=== PATIENT | female | born 1975 | race Caucasian/White ===

== ENCOUNTER 2019-05-27 11:06 | Outpatient (CLI) | payer OTHER, SELFPAY ==
--- NOTE | 2019-05-27 11:10 | MM_ITS ---
WS: [id number] BILATERAL DIGITAL DIAGNOSTIC MAMMOGRAM MAMMOGRAPHY WITH CAD CLINICAL INFORMATION: repeat mammo, new lump to left breast COMPARISON: May 27, 2018 TECHNIQUE: Bilateral CC, MLO, and ML views. FINDINGS: The breasts are composed of heterogeneous fibroglandular density, which can limit the detection of sm all underlying mass lesions. Palpable marker upper outer left breast with dense underlying breast tis timur. Partially obscured nodular density measuring 2.1 CM. Ultrasound is pending. Right breast is unch anged. ULTRASOUND BREAST LEFT TECHNIQUE: Ultrasound left breast focused area of concern. CLINICAL INFORMATION: repeat mammo, new lump to left breast COMPARISON: None. FINDINGS: Ultrasound left breast at 3:00 position 2 cm from the nipple. Cystic lesion measures 2.3 x 2.2 x 1.6 cm consistent with benign simple cyst. Similar-appearing cyst present in this location on the 2019 ul trasound. No pathologic lesions to target for biopsy. MM/[place] [id number] IMPRESSION: BI-RADS: 2-Benign FOLLOW UP: 1 Year Follow-up Recommend return to annual screening mammography.
== END 2019-05-27 11:07 | disposition home or self-care (01) ==
LOC: RADSHAW 11:06
PROVIDERS: Family Provider Nurse Practitioner Family; PCP Nurse Practitioner Family; Visit Provider Nurse Practitioner Family
DX: N63.21 Unspecified lump in the left breast, upper outer quadrant (principal); N60.02 Solitary cyst of left breast
CPT/HCPCS: 76642; 77066

== ENCOUNTER → 2020-06-28 10:11 | Outpatient (BNVA) | payer OTHER, SELFPAY | PROVIDERS: Family Provider Nurse Practitioner Family; PCP Nurse Practitioner Family; Visit Provider Nurse Practitioner Family | DX: J32.9 Chronic sinusitis, unspecified (principal) | CPT/HCPCS: 80053; 85025 ==

== ENCOUNTER → 2020-08-27 10:49 | Outpatient (BNVA) | payer OTHER, SELFPAY | PROVIDERS: Family Provider Nurse Practitioner Family; PCP Nurse Practitioner Family; Visit Provider Nurse Practitioner Women's Health | DX: R87.610 Atypical squamous cells of undetermined significance on cytologic smear of cervix (ASC-US) (principal); Z01.419 Encounter for gynecological examination (general) (routine) without abnormal findings | CPT/HCPCS: 88175 ==

== ENCOUNTER → 2020-09-14 10:49 | Outpatient (BNVA) | payer OTHER, SELFPAY | PROVIDERS: Family Provider Nurse Practitioner Family; PCP Nurse Practitioner Family; Visit Provider Obstetrics & Gynecology | DX: R87.610 Atypical squamous cells of undetermined significance on cytologic smear of cervix (ASC-US) (principal) | CPT/HCPCS: 81025; 88305 ==

== ENCOUNTER → 2020-12-23 08:30 | Outpatient (BNVA) | payer OTHER, SELFPAY | PROVIDERS: Family Provider Nurse Practitioner Family; PCP Nurse Practitioner Family; Visit Provider Nurse Practitioner Family | DX: R05.9 Cough, unspecified (principal); Z20.822 Contact with and (suspected) exposure to COVID-19 | CPT/HCPCS: 87635 ==

== ENCOUNTER 2021-06-07 07:30 | Outpatient (CLI) | payer OTHER, SELFPAY ==
--- NOTE | 2021-06-07 07:46 | MM_ITS ---
WS: [id number] BILATERAL 3D TOMOSYNTHESIS DIGITAL SCREENING MAMMOGRAPHY WITH CAD CLINICAL INFORMATION: Z12.39 - Encounter for other screening for malignant neop... HISTORY: Screening mammogram. No current complaints. COMPARISON: May 27, 2019 TECHNIQUE: Bilateral CC and MLO views. FINDINGS: The breasts are composed of heterogeneous fibroglandular density tissue, which can limit the detectio n of small underlying mass lesions. Similar-appearing nodular breast tissue upper outer LEFT breast c ompatible with previously described cyst on prior ultrasound. No suspicious mass, asymmetry, calcific ations, or architectural distortion. No evidence of malignancy. MM/[place] [id number] IMPRESSION: BI-RADS: 2-Benign FOLLOW UP: 1 Year Follow-up Recommend return to annual screening mammography.
== END 2021-06-07 07:31 | disposition home or self-care (01) ==
PROVIDERS: PCP Nurse Practitioner Family; Visit Provider Nurse Practitioner Family
DX: Z12.31 Encounter for screening mammogram for malignant neoplasm of breast (principal)
CPT/HCPCS: 77063; 77067

== ENCOUNTER → 2021-11-16 11:28 | Outpatient (BNVA) | payer OTHER, SELFPAY | PROVIDERS: PCP Family Medicine; Visit Provider Nurse Practitioner Family | DX: M25.50 Pain in unspecified joint (principal); R53.83 Other fatigue | CPT/HCPCS: 80053; 82306; 82607; 83735; 84439; 84443; 84550; 85025; 85651; 86038; 86140; 86200; 86431 ==

== ENCOUNTER → 2021-12-27 12:28 | Outpatient (BNVA) | payer OTHER, SELFPAY | PROVIDERS: PCP Family Medicine; Visit Provider Nurse Practitioner Family | DX: R19.7 Diarrhea, unspecified (principal) | CPT/HCPCS: 87493; 87506 ==

== ENCOUNTER → 2022-05-26 10:10 | Outpatient (BNVA) | payer OTHER, SELFPAY | PROVIDERS: PCP Family Medicine; Visit Provider Nurse Practitioner Family | DX: R23.3 Spontaneous ecchymoses (principal) | CPT/HCPCS: 80053; 84443; 85025; 85379; 85651; 86140 ==

== ENCOUNTER 2022-06-16 07:36 | Outpatient (CLI) | payer OTHER, SELFPAY ==
--- NOTE | 2022-06-16 08:00 | CT_ITS ---
WS: [id number] CTA HEAD TECHNIQUE: Contrast enhanced CTA of the head with coronal and sagittal reformatted images and maximum intensity projection (MIP) images. NASCET criteria utilized. CLINICAL INFORMATION: H93.A3 - Pulsatile tinnitus, bilateral COMPARISON: None. DLP: 1516.[address] scans at [facility] use at least one of these dose optimization techniques: automated e xposure control; mA and/or kV adjustment per patient size (includes targeted exams where dose is matc hed to clinical indication); or iterative reconstruction. FINDINGS: No evidence of intracranial hemorrhage or mass effect. Ventricular system and basal cistern s are patent. No extra axial fluid collections. No evidence of mass or mass effect. Paranasal sinuses and mastoid air cells well aerated. INTRACRANIAL CTA: The distal vertebral arteries are patent. Basilar artery is patent. Normal vascularity to the [facility] ter ritory bilaterally. Both ICAs are patent at the skull base. Normal vascularity to the BONNIE and MCA territories bilaterally . No evidence of high-grade proximal stenosis. Paranasal sinuses and mastoid air cells well aerated. Normal posterior nasopharynx. Normal visualized dural venous sinuses. CT/CT angio head [id number] IMPRESSION: 1. Normal intracranial CTA. 2. No evidence of intracranial hemorrhage or mass effect. 3. Paranasal sinuses and mastoid air cells well aerated. 4. No other suspicious findings.
[2022-06-16] MEDS: iohexol 350 mg/mL 500 mL Btl (per mL) IV (08:01)
== END 2022-06-16 07:37 | disposition home or self-care (01) ==
LOC: RAD 07:44
PROVIDERS: PCP Family Medicine; Visit Provider Nurse Practitioner Family
DX: H93.A3 Pulsatile tinnitus, bilateral (principal)
CPT/HCPCS: 70496; Q9967

== ENCOUNTER 2022-08-17 15:24 | Outpatient (CLI) | payer OTHER, SELFPAY ==
--- NOTE | 2022-08-17 16:00 | MR_ITS ---
WS: [id number] MRI HEAD WITH CONTRAST WITH ATTENTION TO THE INTERNAL AUDITORY CANALS TECHNIQUE: Sagittal T1, T2 axial, T2 axial flair, axial susceptibility weighted imaging, axial diffus ion weighted images, and coronal T2 images were obtained. Pre and post T1 axial and post T1 coronal i mages. ADC and FSPGR images. Post gadolinium images with attention to the internal auditory canals. A xial fiesta imaging. CLINICAL INFORMATION: H91.20 - Sudden idiopathic hearing loss, unspecified ear COMPARISON: CTA June 16, 2022 FINDINGS: No evidence restricted diffusion to suggest acute ischemia. Ventricular system and basal cisterns are patent. No suspicious intracranial signal abnormalities. Normal ta-white differentiation. Normal p osterior fossa. Normal vascular flow voids at the skull base. No extra axial fluid collections. No ev idence of mass or mass effect. Paranasal sinuses and mastoid air cells well aerated. Normal posterior nasopharynx. Normal parapharyngeal fat. No hemosiderin on susceptibly weighted images. 7th and 8th cranial nerves are normal in appearance. Normal trigeminal nerve root entry zones. No steve dence of enhancing IAC or CP angle mass. Visualized orbits appear normal. No abnormal gadolinium enhancement. Normal visualized dural venous sinuses. No other suspicious findi ngs. MR/MR iac's wo/w con* [id number] IMPRESSION: 1. No evidence of enhancing IAC or CP angle mass. Normal trigeminal nerve root entry zones. 2. Mastoid air cells well aerated. 3. No suspicious intracranial signal abnormalities. 4. No hemosiderin on susceptibly weighted images. 5. No abnormal gadolinium enhancement.
[2022-08-17] MEDS: gadobenate dimeglumine 20 mL vial IV (16:28)
== END 2022-08-17 15:25 | disposition home or self-care (01) ==
PROVIDERS: PCP Family Medicine; Visit Provider Nurse Practitioner Family
DX: H91.21 Sudden idiopathic hearing loss, right ear (principal); G43.109 Migraine with aura, not intractable, without status migrainosus; R42 Dizziness and giddiness
CPT/HCPCS: 70553; A9577

== ENCOUNTER 2022-08-28 07:36 | Outpatient (CLI) | payer OTHER, SELFPAY ==
--- NOTE | 2022-08-28 08:00 | USCV_ITS ---
Jennifer Nicole Age: 47 Gender: F : 1975 Exam Date: 08/28/2022 08:17 Ordering Phys: Sabi Chapman YARN EXAMINER YARN EXAMINER Technologist: Danielle Marinelli Exam Location: [facility] [place]_ Indication: DIZZINESS Risk Factors: Previous Vascular Surgery: Right Brachial BP: / Left Brachial BP: / Right Left Velocity (cm/s) Spectral Plaque Velocity (cm/s) Spectral Plaque Syst/Diast Broadening Syst/Diast Broadening 106.90/18.70 Prox CCA 148.60/ 34.20 132.30/30.90 Mid CCA 142.00/ 28.90 105.80/23.20 Distal CCA 119.60/ 30.20 100.30/17.60 Prox ICA 82.70 / 20.90 122.40/38.60 Mid ICA 120.20/ 39.70 98.50/ 38.50 Distal ICA 133.40/ 54.00 112.50 ECA 101.40 0.92 ICA/CCA 0.90 Antegrade Vertebral Antegrade 70.60/ 20.90 cm/s 79.40/ 16.50 cm/s Tri Subclavian Tri 188.9 241.1 0 0 FINDINGS Comparison: none available. No significant elevation of systolic or diastolic velocities. Waveforms are normal. Antegrade vertebral arteries. CONCLUSIONS Normal carotid doppler ultrasound. Dr. Anum Yoo DO (Electronically Signed) Final Date: 28 August 2022 09:01 S
== END 2022-08-28 07:37 | disposition home or self-care (01) ==
PROVIDERS: PCP Family Medicine; Visit Provider Nurse Practitioner Family
DX: R42 Dizziness and giddiness (principal)
CPT/HCPCS: 80053; 82607; 83735; 84439; 84443; 85025; 85651; 86140; 86160; 86162; 86200; 86235; 86255; 86376; 86431; 93880

== ENCOUNTER → 2022-12-07 11:50 | Outpatient (BNVA) | payer OTHER, SELFPAY | PROVIDERS: PCP Nurse Practitioner Family; Visit Provider Internal Medicine | DX: H91.93 Unspecified hearing loss, bilateral (principal); I73.00 Raynaud's syndrome without gangrene; M25.50 Pain in unspecified joint; R00.2 Palpitations; R20.2 Paresthesia of skin; M45.0 Ankylosing spondylitis of multiple sites in spine | CPT/HCPCS: 81000; 82164; 82550; 82728; 82784; 83516; 83520; 83540; 83735; 84100; 84155; 84165; 85651; 86003; 86008; 86036; 86140; 86618; 86666; 86704; 86757; 86803; 86812; 87340 ==

== ENCOUNTER → 2023-01-16 11:32 | Outpatient (BNVA) | payer OTHER, SELFPAY | PROVIDERS: PCP Nurse Practitioner Family; Visit Provider Nurse Practitioner Family | DX: T78.40XA Allergy, unspecified, initial encounter (principal); L50.9 Urticaria, unspecified | CPT/HCPCS: 82785; 86003 ==

== ENCOUNTER → 2023-02-14 12:40 | Outpatient (BNVA) | payer OTHER, SELFPAY | PROVIDERS: PCP Nurse Practitioner Family; Visit Provider Nurse Practitioner Family | DX: L65.9 Nonscarring hair loss, unspecified (principal) | CPT/HCPCS: 82627; 84439; 84443; 84481; 86376 ==

== ENCOUNTER → 2024-10-03 12:50 | Outpatient (BNVA) | payer OTHER, SELFPAY | PROVIDERS: PCP Nurse Practitioner Family; Referring Provider Registered Nurse; Visit Provider Obstetrics & Gynecology | DX: Z01.419 Encounter for gynecological examination (general) (routine) without abnormal findings (principal) | CPT/HCPCS: 87624 ==